=== PATIENT | male | born 1940 | race African-American/Black ===

== ENCOUNTER 2017-08-30 07:26 | Inpatient (IN) ==
[2017-08-30] MEDS ORDERED: SODIUM CHLORIDE 0.9% 1,000 ML IV STA (07:40)
[2017-08-30] MEDS ORDERED: ONDANSETRON 4 MG/2 ML VIAL IV PRN ×2 (07:40→10:39)
[2017-08-30] MEDS ORDERED: PANTOPRAZOLE 40 MG VIAL IV STA (08:12)
[2017-08-30] MEDS ORDERED: PANTOPRAZOLE 40 MG VIAL IV ONE (08:18)
[2017-08-30 08:30] LABS: Basophils % 0.3 % (0.0-0.8); Eosinophils # 0.1 10*3/uL (0.0-0.87); Hematocrit 39.9 VOL% (42.0-52.0); Hemoglobin 13.5 GM/DL (14.0-18.0); Immature Granulocytes % 0.5 %; Immature Granulocytes Absolute 0.03 #; Lymphocytes % 17.1 % (21.2-54.2); Mean Corpuscular HGB Conc 33.8 GM/DL (32-36); Mean Corpuscular Hemoglobin 31 PG (27-34); Mean Corpuscular Volume 92.6 FL (87-102); Mean Platelet Volume 11.3 FL (9.6-12.0); Monocytes # 0.5 10*3/uL (0.11-0.8); Monocytes % 8.7 % (1.7-12.7); Neutrophils # 4.2 10*3/uL (1.4-7.4); Neutrophils % 71.4 % (38.7-73.9); Platelet Count 167 T/CUMM (130-400); Red Blood Count 4.31 MC/CUMM (3.8-5.5); Red Cell Distribution Width 12.4 % (9.3-17.3); White Blood Count 5.9 T/CUMM (4-12)
[2017-08-30 08:45] LABS: Partial Thromboplastin Time 26.6 SECS (0-40)
[2017-08-30 09:04] LABS: Albumin 3.6 G/DL (3.4-5.0); Bilirubin,Total 0.7 MG/DL (0.2-1.0); Calcium 8.8 MG/DL (8.5-10.1); Osmolality,Calculated 278.8 MOS/KG (273-304); Potassium 4.1 MMOL/L (3.5-5.1); Total Protein 6.7 G/DL (6.4-8.3)
[2017-08-30] MEDS: SODIUM CHLORIDE 0.9% 1,000 ML IV SCH ×2 (11:36→18:54)
[2017-08-30 18:53] LABS: Hemoglobin 11.4 GM/DL (14.0-18.0)
[2017-08-30] MEDS ORDERED: traMADol 50 MG TABLET PO PRN (20:28)
[2017-08-30] MEDS: DOCUSATE SODIUM 100 MG CAPSULE PO SCH (21:12)
[2017-08-30] MEDS: GABAPENTIN 100 MG CAPSULE PO SCH (21:12)
[2017-08-30] MEDS: LISINOPRIL/HCTZ 20-12.5 MG TABLET PO SCH (21:13)
[2017-08-30] MEDS: TAMSULOSIN 0.4 MG CAPSULE PO SCH (21:13)
[2017-08-30] MEDS: ATORVASTATIN 40 MG TABLET PO SCH (21:15)
[2017-08-31 00:51] LABS: Hematocrit 33.8 VOL% (42.0-52.0); Hemoglobin 11.1 GM/DL (14.0-18.0)
[2017-08-31 00:52] LABS: Basophils % 0.5 % (0.0-0.8); Eosinophils # 0.1 10*3/uL (0.0-0.87); Hematocrit 33.9 VOL% (42.0-52.0); Immature Granulocytes % 0.3 %; Immature Granulocytes Absolute 0.02 #; Lymphocytes # 1.6 10*3/uL (1.4-4.0); Lymphocytes % 25.5 % (21.2-54.2); Mean Corpuscular HGB Conc 32.4 GM/DL (32-36); Mean Corpuscular Hemoglobin 31 PG (27-34); Mean Platelet Volume 11.3 FL (9.6-12.0); Monocytes # 0.7 10*3/uL (0.11-0.8); Monocytes % 11.3 % (1.7-12.7); Neutrophils # 3.9 10*3/uL (1.4-7.4); Neutrophils % 60.4 % (38.7-73.9); Platelet Count 151 T/CUMM (130-400); Red Blood Count 3.57 MC/CUMM (3.8-5.5); Red Cell Distribution Width 12.3 % (9.3-17.3); White Blood Count 6.4 T/CUMM (4-12)
[2017-08-31 01:11] LABS: Albumin 2.9 G/DL (3.4-5.0); Bilirubin,Total 0.5 MG/DL (0.2-1.0); Potassium 3.9 MMOL/L (3.5-5.1); Risk Ratio 2.26; Total Protein 5.3 G/DL (6.4-8.3)
[2017-08-31] MEDS: SODIUM CHLORIDE 0.9% 1,000 ML IV SCH (02:20)
[2017-08-31 05:12] LABS: Apearance,Urine CLEAR (Clear); Bilirubin,Urine Negative (Negative); Blood, Urine Negative (Negative); Glucose,Urine (UA) Negative (Negative); Ketones,Urine Negative (Negative); Nitrite,Urine Negative (Negative); Protein,Urine Negative; RBC,Urine 1 /HPF (0-4); Urine Color Straw (Yellow); Urine Specific Gravity 1.006 (1.001-1.035); Urine Urobilinogen < 2.0 EU/DL (0.2-1.0); WBC,Urine <1 /HPF (0-6)
[2017-08-31] MEDS: GABAPENTIN 100 MG CAPSULE PO SCH ×3 (08:54→20:12)
[2017-08-31] MEDS: LISINOPRIL/HCTZ 20-12.5 MG TABLET PO SCH ×2 (08:54→21:08)
[2017-08-31] MEDS: MAGNESIUM CHLORIDE 64 MG TABLET PO SCH ×2 (08:54→20:12)
[2017-08-31] MEDS: DOCUSATE SODIUM 100 MG CAPSULE PO SCH (08:55)
[2017-08-31] MEDS: PANTOPRAZOLE 40 MG TABLET PO SCH (08:56)
[2017-08-31] MEDS: SODIUM CHLOR 0.9% KCL 20 MEQ 20 MEQ/1,000 ML BAG IV SCH ×2 (08:56→20:11)
[2017-08-31] MEDS: TAMSULOSIN 0.4 MG CAPSULE PO SCH ×2 (08:56→20:12)
[2017-08-31 16:03] LABS: Hematocrit 37.1 VOL% (42.0-52.0)
[2017-08-31] MEDS ORDERED: POLYETHYLENE GLYCOL POWDER 255 GM BOTTLE PO ONE (19:00)
[2017-08-31] MEDS: ATORVASTATIN 40 MG TABLET PO SCH (20:12)
[2017-09-01] MEDS: SODIUM CHLOR 0.9% KCL 20 MEQ 20 MEQ/1,000 ML BAG IV SCH (05:31)
[2017-09-01 05:57] LABS: Basophils % 0.6 % (0.0-0.8); Eosinophils # 0.1 10*3/uL (0.0-0.87); Eosinophils % 1.7 % (0.00-10.9); Hematocrit 37.4 VOL% (42.0-52.0); Immature Granulocytes % 0.5 %; Immature Granulocytes Absolute 0.03 #; Lymphocytes # 1.2 10*3/uL (1.4-4.0); Lymphocytes % 18.3 % (21.2-54.2); Mean Corpuscular HGB Conc 32.1 GM/DL (32-36); Mean Corpuscular Hemoglobin 31 PG (27-34); Mean Corpuscular Volume 95.9 FL (87-102); Mean Platelet Volume 11.4 FL (9.6-12.0); Monocytes # 0.6 10*3/uL (0.11-0.8); Monocytes % 9.9 % (1.7-12.7); Neutrophils # 4.4 10*3/uL (1.4-7.4); Platelet Count 162 T/CUMM (130-400); Red Cell Distribution Width 12.4 % (9.3-17.3); White Blood Count 6.3 T/CUMM (4-12)
[2017-09-01] MEDS ORDERED: MAGNESIUM CITRATE 300 ML BOTTLE PO ONE (06:00)
[2017-09-01 06:25] LABS: Calcium 8.5 MG/DL (8.5-10.1)
[2017-09-01] MEDS: GABAPENTIN 100 MG CAPSULE PO SCH ×3 (09:19→21:38)
[2017-09-01] MEDS ORDERED: LIDOCAINE 1% 5 ML VIAL ONE (14:24)
[2017-09-01] MEDS ORDERED: PROPOFOL 200 MG/20 ML VIAL IV ONE (14:24)
[2017-09-01] MEDS ORDERED: ZINC OXIDE PASTE 113 GM TUBE TOP PRN (14:45)
[2017-09-01] MEDS: MAGNESIUM CHLORIDE 64 MG TABLET PO SCH ×2 (14:55→21:38)
[2017-09-01] MEDS: PANTOPRAZOLE 40 MG TABLET PO SCH (14:55)
[2017-09-01] MEDS: LISINOPRIL/HCTZ 20-12.5 MG TABLET PO SCH ×2 (14:55→21:38)
[2017-09-01] MEDS: TAMSULOSIN 0.4 MG CAPSULE PO SCH ×2 (14:55→21:38)
[2017-09-01] MEDS: HYDROCORTISONE 25 MG SUPP RECTAL SCH (21:39)
[2017-09-01] MEDS: ATORVASTATIN 40 MG TABLET PO SCH (21:42)
[2017-09-02] MEDS: SODIUM CHLOR 0.9% KCL 20 MEQ 20 MEQ/1,000 ML BAG IV SCH ×3 (01:49→23:04)
[2017-09-02 06:48] LABS: Basophils % 0.3 % (0.0-0.8); Eosinophils # 0.1 10*3/uL (0.0-0.87); Eosinophils % 1.3 % (0.00-10.9); Hematocrit 34.6 VOL% (42.0-52.0); Hemoglobin 11.8 GM/DL (14.0-18.0); Immature Granulocytes % 0.3 %; Immature Granulocytes Absolute 0.02 #; Lymphocytes % 14.2 % (21.2-54.2); Mean Corpuscular HGB Conc 34.1 GM/DL (32-36); Mean Corpuscular Hemoglobin 32 PG (27-34); Mean Corpuscular Volume 93.3 FL (87-102); Mean Platelet Volume 11.7 FL (9.6-12.0); Monocytes # 0.6 10*3/uL (0.11-0.8); Monocytes % 9.2 % (1.7-12.7); Neutrophils # 5.1 10*3/uL (1.4-7.4); Neutrophils % 74.7 % (38.7-73.9); Platelet Count 161 T/CUMM (130-400); Red Blood Count 3.71 MC/CUMM (3.8-5.5); Red Cell Distribution Width 12.5 % (9.3-17.3); White Blood Count 6.8 T/CUMM (4-12)
[2017-09-02 07:05] LABS: Calcium 8.9 MG/DL (8.5-10.1); Osmolality,Calculated 286.8 MOS/KG (273-304); Potassium 4.2 MMOL/L (3.5-5.1)
[2017-09-02] MEDS: HYDROCORTISONE 25 MG SUPP RECTAL SCH ×3 (09:05→20:39)
[2017-09-02] MEDS: LISINOPRIL/HCTZ 20-12.5 MG TABLET PO SCH ×2 (09:06→20:35)
[2017-09-02] MEDS: GABAPENTIN 100 MG CAPSULE PO SCH ×3 (09:06→20:35)
[2017-09-02] MEDS: MAGNESIUM CHLORIDE 64 MG TABLET PO SCH ×2 (09:06→20:35)
[2017-09-02] MEDS: TAMSULOSIN 0.4 MG CAPSULE PO SCH ×2 (09:06→20:35)
[2017-09-02] MEDS: PANTOPRAZOLE 40 MG TABLET PO SCH (09:06)
[2017-09-02] MEDS: ATORVASTATIN 40 MG TABLET PO SCH (20:35)
[2017-09-03 07:35] VITALS: BP 113/75
[2017-09-03] MEDS: TAMSULOSIN 0.4 MG CAPSULE PO SCH (09:13)
[2017-09-03] MEDS: GABAPENTIN 100 MG CAPSULE PO SCH (09:13)
[2017-09-03] MEDS: MAGNESIUM CHLORIDE 64 MG TABLET PO SCH (09:13)
[2017-09-03] MEDS: PANTOPRAZOLE 40 MG TABLET PO SCH (09:14)
[2017-09-03] MEDS: LISINOPRIL/HCTZ 20-12.5 MG TABLET PO SCH (09:14)
[2017-09-03] MEDS: SODIUM CHLOR 0.9% KCL 20 MEQ 20 MEQ/1,000 ML BAG IV SCH (09:15)
[2017-09-03] MEDS: HYDROCORTISONE 25 MG SUPP RECTAL SCH (09:16)
== END 2017-09-03 10:27 | disposition home or self-care (01) | DRG 393 ==
LOC: N.ED 07:26 → N.EDINP 09:27 → N.2E 10:37
PROVIDERS: ADMIT Family Medicine; ATTEND Family Medicine